=== PATIENT | male | born 1985 | race Caucasian/White ===

== ENCOUNTER 2017-05-13 18:05 | Emergency (ER) | payer OTHER ==
[~2017-05-13 18:05] MED LIST: PRED20 PO; VENTAER INH; ZITH250T PO
[2017-05-13 18:09] VITALS: BP 138/98; PULSE 89; RESP 12; TEMP 98.2; O2SAT 99
--- NOTE | 2017-05-13 18:47 | RADRPT ---
EXAM DATE/TIME: 05/13/2017 18:22 [facility] COMPARISON: No previous studies available for comparison. INDICATIONS : Left anterior tibia pain, heavy object dropped on tibia MEDICAL HISTORY : None. SURGICAL HISTORY : None. ENCOUNTER: Initial ACUITY: 1 day PAIN SCORE: 5/10 LOCATION: Left Tibia FINDINGS: Two view examination of the left tibia demonstrates no evidence of fracture or dislocation. Bony min eralization is normal. Mild pretibial soft tissue swelling distally.. CONCLUSION: Unremarkable examination of the left tibia. Nghia Marie MD on May 13, 2017 at 18:45 Board Certified Radiologist. This report was verified electronically.
--- NOTE | 2017-05-13 18:50 | RADRPT ---
EXAM DATE/TIME: 05/13/2017 18:23 [facility] COMPARISON: No previous studies available for comparison. INDICATIONS : Left distal foot and 2nd toe crush injury, heavy object dropped on foot MEDICAL HISTORY : None. SURGICAL HISTORY : None. ENCOUNTER: Initial ACUITY: 1 day PAIN SCORE: 10/10 LOCATION: Left Foot FINDINGS: Three view examination of the left foot demonstrates no bony destruction, dislocation, or fracture. The tarsal bones appear intact. The interphalangeal and metatarsophalangeal joints are intact. The calcaneus is intact. Bony mineralization is normal. CONCLUSION: No acute bony injury Nghia Marie MD on May 13, 2017 at 18:46 Board Certified Radiologist. This report was verified electronically.
[2017-05-13] MEDS ORDERED: CEPH-460 PO (20:05)
[2017-05-13] MEDS ORDERED: NORC5TAB PO (20:05)
[2017-05-13] MEDS ORDERED: DICL75TA PO (20:05)
[2017-05-13] MEDS ORDERED: CEPHALEXIN MONOHYDRATE 500 MG CAP PO ONE (20:15)
[2017-05-13] MEDS ORDERED: BUPIVACAINE HCL PF 0.5% 30 ML VIAL INFIL ONE (20:15)
[2017-05-13] MEDS ORDERED: LIDOCAINE HCL 1% 50 ML VIAL INFIL ONE (20:15)
[2017-05-13] MEDS ORDERED: LIDOCAINE HCL 2% 50 ML VIAL ONE (20:25)
--- NOTE | 2017-05-13 21:00 | PD ---
HPI Chief Complaint: Injury Time Seen by Provider: 19:40 Travel History International Travel<30 days: No Contact w/Intl Traveler<30days: No Traveled to known affect area: No History of Present Illness HPI 31-year-old white male presents emergency department for evaluation of a work comp injury to his left foot. He states that he had a large wheeled cart weighing almost 1000 pounds rolled up onto his second toe crushing it. He was seen at an urgent care and referred to the ER. X-ray of the foot performed in triage was negative for bony injury. The patient denies any numbness but states that he does have some tingling in his toe along with significant pain. He denies any other injury. He has not had a tetanus shot over 5 years. Exacerbated by walking. No alleviating factors. PFSH Past Medical History Narrative Medical GERD, IBS Asthma: Yes (MILD) Diminished Hearing: No Diverticulitis: Yes Gastrointestinal Disorders: Yes (IBS) Musculoskeletal: Yes (COMPRESSION TAIL BONE) Immunizations Current: Yes Ulcer: Yes Tetanus Vaccination: > 5 Years Influenza Vaccination: No Past Surgical History Other Surgery: Yes (RECONSTRUCTIVE ON FACE) Social History Alcohol Use: Yes (OCC) Tobacco Use: No Substance Use: Yes (Quit marijuana, smokes "CBD oil") Allergies-Medications (Allergen,Severity, Reaction): Coded Allergies: povidone-iodine (Unverified Allergy, Mild, 05/13/17) Uncoded Allergies: ANTIHISTAMINE (Allergy, Mild, 11/06/16) Reported Meds & Prescriptions Reported Meds & Active Scripts Active Keflex (Cephalexin) 500 Mg Cap 500 Mg PO Q6H Diclofenac Sodium DR (Diclofenac Sodium) 75 Mg Tabdr 75 Mg PO BID [place] (Hydrocodone-Acetaminophen) 5 Mg-325 Mg Tab 1 Tab PO Q4H PRN Review of Systems Except as stated in HPI: all other systems reviewed are Neg (. Chills right) Musculoskeletal: Positive: Arthralgias, Limited ROM, Edema, Pain, No: Myalgias , Weakness Physical Exam Narrative Lateral GENERAL: This is a well-nourished, well-developed patient, in no apparent distress. SKIN: No rashes, ecchymoses or lesions. Warm and dry. HEAD: Atraumatic. Normocephalic. EYES: PERRL, EOMI, no discharge or injection. No scleral icterus. EARS: Clear NOSE: Nasal turbinates appear normal. THROAT: Mucosa pink and moist. Airway patent. NECK: Trachea midline. supple, moves head freely. LUNGS: Clear to auscultation. CV: Regular in rhythm. ABDOMEN: Soft nontender. EXT: No clubbing cyanosis or edema. Patient has a crush injury to his left second toe. There is a laceration from the lateral aspect of the toe from the distal phalanx down into the proximal portion of the toe. The wound is gaping open approximately 5 mm. There is a large amount of fat extruding. He has decreased sensation but grossly intact. He has good cap refill. The toe is ecchymotic. He is able to extend but has limited flexion due to pain. The remainder of the foot is unremarkable. Intact dorsalis pedis pulse. Data Data Last Documented VS Vital Signs Date Time Temp Pulse Resp B/P (MAP) Pulse Ox O2 Delivery O2 Flow Rate FiO2 05/13/17 18:09 98.2 89 12 138/98 (111) 99 Orders Orders Foot, Complete (Ppw5nek) (05/13/17 ) Tibia/Fibula (Ap/Lat) (05/13/17 ) Bupivacaine Pf 0.5% Inj (Marcaine Pf 0.5 (05/13/17 20:15) Lidocaine 1% Inj (50 Ml) (Xylocaine 1% I (05/13/17 20:15) Cephalexin (Keflex) (05/13/17 20:15) Lidocaine 2% Inj (Xylocaine 2% Inj) (05/13/17 20:25) Splint Or Brace Apply/Monitor (05/13/17 20:51) Crutches (05/13/17 20:51) Ed Discharge Order (05/13/17 20:51) MDM Medical Decision Making Medical Screen Exam Complete: Yes Emergency Medical Condition: Yes Medical Record Reviewed: Yes Interpretation(s) Last 24 hours Impressions Tibia/Fibula X-Ray 05/13/17 0000 Signed Impressions: Service Date/Time: Saturday, May 13, 2017 18:22 - CONCLUSION: Unremarkable examination of the left tibia. Nhgia Marie MD Foot X-Ray 05/13/17 0000 Signed Impressions: Service Date/Time: Saturday, May 13, 2017 18:23 - CONCLUSION: No acute bony injury Nghia Marie MD Differential Diagnosis MDM: High Differential diagnoses: Fracture, sprain, strain, dislocation, contusion, neurovascular injury Narrative Course I discussed the case with Dr. Scherer who has agreed to see the patient. He has requested that I irrigate the wound copiously and loosely approximate the tissues. He is aware that this is a significant crush injury. He will see the patient close follow-up. This is a crush injury left second toe. Procedures Procedure Narrative LACERATION LOCATION: Left second toe LENGTH: 3 cm NUMBER OF STITCHES/JIMBO: 4 REPAIR: The area of the laceration was prepped with Betadine and sterilely draped. The laceration was infiltrated with 1% lidocaine and 0.5% Marcaine digital block. The wound was copiously irrigated and explored without evidence of foreign body, tendon injury or neurovascular injury. The wound was closed using 5-0 Prolene loosely . This was a single layer repair. A sterile dressing was applied. Patient was placed in a Spicer compression dressing, postop shoe and crutches. The patient was advised to keep the dressing clean and dry. Patient tolerated the procedure well. Diagnosis Primary Impression: Crushing injury of second toe, left Qualified Codes: S97.122A - Crushing injury of left lesser toe(s), initial encounter Referrals: Herb Scherer DPM 2 days Patient Instructions: General Instructions Departure Forms: Tests/Procedures, Work Release Special Instructions: No work 3 days. Additional Instructions: Rest. Elevation. Ice packs for the next 3 days. Spicer compression dressing and crutches. Keflex and hydrocodone. Diclofenac. No weight-bearing and then progress to weight-bearing as tolerated. Medications as directed Follow-up with Dr. Scherer the electrical calibrator in the next 2 days. Call the office in the morning. Return to the ER if any problems Med/Other Pt SpecificInfo: Prescription(s) given Scripts Cephalexin (Keflex) 500 Mg Cap 500 MG PO Q6H for Infection, #30 CAP 0 Refills Prov: Peña Harden MD 05/13/[address] (Diclofenac Sodium DR) 75 Mg Tabdr 75 MG PO BID, #30 TAB 0 Refills Prov: Peña Harden MD 05/13/17 Hydrocodone-Acetaminophen ([place]) 5 Mg-325 Mg Tab 1 TAB PO Q4H Y for PAIN, #12 TAB 0 Refills Prov: Peña Harden MD 05/13/17 Sinan Lundy May 13, 2017 21:00
[2017-05-13] MEDS ORDERED: ONDANSETRON ODT 4 MG TAB PO ONE (21:30)
[2017-05-13] MEDS ORDERED: MORPHINE SULFATE 8 MG/ML INJ IM ONE (21:30)
== END 2017-05-13 21:48 | disposition home or self-care (01) ==
LOC: NEPD 18:05
DX: S97.122A Crushing injury of left lesser toe(s), initial encounter (principal); J45.909 Unspecified asthma, uncomplicated; V04.90XA Pedestrian on foot injured in collision with heavy transport vehicle or bus, unspecified whether traffic or nontraffic accident, initial encounter; Y99.0 Civilian activity done for income or pay
CPT/HCPCS: 12002; 73590; 73630; 96372; 99283; E0113; J2270